=== PATIENT | male | born 1980 | race Caucasian/White ===

== ENCOUNTER 2016-10-22 10:12 | Emergency (ER) | payer MEDICAID ==
[2016-10-22 10:38] VITALS: BP 131/83
[2016-10-22] MEDS ORDERED: Sodium Chloride 0.9% 1,000 ML IV ONE (10:55)
[2016-10-22] MEDS ORDERED: Metoclopramide 10 MG/2 ML SDV IVPUSH ONE (10:56)
[2016-10-22] MEDS ORDERED: Dicyclomine 10 MG Cap PO ONE (10:57)
[2016-10-22] MEDS ORDERED: diphenhydrAMINE 50 MG/ML SDV IVPUSH ONE (10:57)
[2016-10-22] MEDS ORDERED: Dextrose 5%-Lactated Ringers 1,000 ML IV SCH (11:00)
--- NOTE | 2016-10-24 11:30 | ER ---
DATE SEEN: 10/22/2016 TIME SEEN: The patient was seen at 1030 hours. HISTORY OF PRESENT ILLNESS: This 36-year-old man, who smokes a half- pack of cigarettes per day, has had 2 kidney stones in the last 20 months, is status post previous lithotripsy in 2010, comes in with history of onset of flu like symptoms with abdominal pain starting at 0300 hours. He has had bloating and gas and notes he has "passed the foulest gas ever." He works at a [employer]. 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 He does not usually eat the pizza there, but on occasion, he eats when he gets hungry. The patient does not have associated vomiting. His stools are "neon" in character. He has no recent antibiotics used. The abdominal pain is described as cramping and 8/10 in intensity he has 15- 20 bouts of diarrhea with trace blood in the stool. MEDICATIONS: 1. Clonazepam for anxiety. 2. Gabapentin 600 mg b.i.d. for chronic pain. ALLERGIES: None. REVIEW OF SYSTEMS: Negative except for noted above. PHYSICAL EXAMINATION: VITAL SIGNS: Blood pressure 131/83, respirations 16, oxygen saturation 98%, temperature is 36.3, and pulse is 87. The patient is 83.915 kg. GENERAL: The patient has marked pain, is unshaven, slightly overweight, well-muscled fellow, well-nourished fellow. HEENT: TMs negative. Pharynx is without erythema. NECK: No cervical adenopathy, thyromegaly, or masses in the neck. Smoking odor noted on his breath. LUNGS: Clear to auscultation without rales, rhonchi, or wheezes. HEART: S1, S2. No murmur. No irregular rate or rhythm. ABDOMEN: Soft with [id number]-jssjnclg guarding. No rebound. Bowel sounds are slightly increased. No CVA percussion tenderness. : Genitalia negative. No inguinal hernia. No upper abdominal masses or incisions. LOWER EXTREMITIES: Without pedal edema. LABORATORY FINDINGS: No lab work was performed. The patient was treated with a liter of D5 lactated Ringer's and a liter of normal saline. He had Benadryl IV plus metoclopramide 10 mg IV and his pain went down to almost 0, but if he moves around the cramping recurs. He feels much better. He says he feels hungry. He still has generalized abdominal discomfort when he gets up and moves around. The patient had a prescription for Zofran 10 tablets 1 q.4 hours p.r.n. nausea and vomiting and also Bentyl 10 mg 1 to 2 tabs 4 times a day as needed for cramping. Follow up with doctor in 24 hours if markedly worse, otherwise in 3 days. Off work and return to work on October 25. DIAGNOSES: 1. Gastrointestinal food poisoning, generalized induced cramping with extensive diarrhea with dehydration. 2. Smoking. 3. History of renal stones. PLAN: The patient will need to follow his renal status because potentially he could have renal stone development out of this dehydration episode. No CAT scan was performed as he has a nonsurgical abdomen, there was no evidence for peritonitis. The blood in the stool was somewhat of concern, consequently a stool specimen will be obtained. He was not able to give us a specimen in the hospital, but he is going to bring the specimen from home to rule out Salmonella, Shigella. /[id number] ALETHEA/MARITZA NOLASCO
== END 2016-10-22 14:30 | disposition home or self-care (01) ==
LOC: FB.ED 10:12
DX: T62.8X1A Toxic effect of other specified noxious substances eaten as food, accidental (unintentional), initial encounter (principal); E86.0 Dehydration; R19.7 Diarrhea, unspecified; F17.210 Nicotine dependence, cigarettes, uncomplicated
CPT/HCPCS: 87015; 87045; 87046; 87899; 96361; 96374; 96375; 99284; A9270; J1200; J2765; J7040; J7042

== ENCOUNTER 2017-06-12 16:45 | Emergency (ER) | payer MEDICAID ==
[2017-06-12] MEDS ORDERED: Lidocaine 1% 20 ML MDV INFILT ONE (16:46)
[2017-06-12] MEDS ORDERED: Amoxicillin/Clavulanate K 250-125 MG Tab PO ONE (17:24)
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
[2017-06-12 17:47] VITALS: BP 145/65
== END 2017-06-12 17:40 | disposition home or self-care (01) ==
LOC: FB.ED 16:45
DX: S71.151A Open bite, right thigh, initial encounter (principal); W54.0XXA Bitten by dog, initial encounter; Z87.442 Personal history of urinary calculi; Z98.890 Other specified postprocedural states; F17.210 Nicotine dependence, cigarettes, uncomplicated
CPT/HCPCS: 12002; 99283; A9270

== ENCOUNTER 2017-06-26 19:18 | Emergency (ER) | payer MEDICAID ==
[2017-06-26] MEDS ORDERED: HYDROmorphone 2 MG/ML SDV IM STA (19:56)
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
[2017-06-26] MEDS ORDERED: cefTRIAXone 1,000 MG VIAL IM ONE (20:57)
[2017-06-26 22:01] VITALS: BP 149/93
--- NOTE | 2017-06-27 10:58 | US ---
INDICATION: Possible abscess left forearm. NONVASCULAR LEFT UPPER EXTREMITY ULTRASOUND: Multiple ultrasonic images were obtained 06/27/2017 and revealed a 43 x 26 x 27-mm heterogeneous, mostly hypoechoic mass, irregular in shape, with minimal interior blood flow in areas of solid tissue. The area is compatible with an abscess. Drainage recommended for diagnosis. This is in the area of the lower portion of the biceps. Edematous changes are noted in surrounding musculature. IMPRESSION: Findings are most compatible with an abscess in the left arm. MTDD
== END 2017-06-26 21:25 | disposition home or self-care (01) ==
LOC: FB.ED 19:18
DX: L03.114 Cellulitis of left upper limb (principal); F17.210 Nicotine dependence, cigarettes, uncomplicated
CPT/HCPCS: 10061; 36415; 76881; 80048; 83605; 85025; 87040; 87070; 87075; 87205; 96372; 99284; J0696; J1170; 10060

== ENCOUNTER 2017-06-29 16:22 | Emergency (ER) | payer MEDICAID ==
[2017-06-29 16:43] VITALS: BP 141/56
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
== END 2017-06-29 17:57 | disposition home or self-care (01) ==
LOC: FB.ED 16:22
DX: L02.414 Cutaneous abscess of left upper limb (principal)
CPT/HCPCS: 36415; 85025; 99283

== ENCOUNTER 2017-09-25 15:47 | Emergency (ER) | payer MEDICAID ==
[2017-09-25] MEDS ORDERED: Naloxone 0.4 MG/ML SDV IVPUSH ONE ×2 (15:48→16:56)
[2017-09-25] MEDS ORDERED: Pantoprazole 40 MG Vial IVPUSH ONE (16:00)
[2017-09-25] MEDS ORDERED: Ondansetron 4 MG/2 ML SDV IVPUSH ONE (16:00)
[2017-09-25] MEDS ORDERED: Sodium Chloride 0.9% 1,000 ML IV ONE (16:00)
[2017-09-25] MEDS ORDERED: Thiamine 100 MG in Sodium Chloride 0.9% 100 ML IV ONE (16:02)
[2017-09-25] MEDS ORDERED: Albuterol/Ipratropium 3.0-0.5 MG/3 ML Neb Soln NEB ONE (16:09)
[2017-09-25] MEDS ORDERED: Albuterol/Ipratropium 3.0-0.5 MG/3 ML Neb Soln ONE (16:12)
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
[2017-09-25] MEDS ORDERED: Sodium Chloride 0.9% 1,000 ML IV SCH ×2 (16:58→17:04)
[2017-09-25] MEDS ORDERED: cefTRIAXone 500 MG Vial IVPUSH ONE (17:45)
[2017-09-25] MEDS ORDERED: cefTRIAXone 500 MG Vial ONE (17:46)
[2017-09-25] MEDS ORDERED: Flumazenil 0.1 MG/ML 5 ML MDV IVPUSH STA (17:47)
[2017-09-25] MEDS ORDERED: Flumazenil 0.1 MG/ML 5 ML MDV IVPUSH ONE (17:48)
[2017-09-25] MEDS ORDERED: Flumazenil 0.1 MG/ML 5 ML MDV ONE (17:51)
[2017-09-25] MEDS ORDERED: cefTRIAXone 500 MG Vial IM ONE (18:48)
--- NOTE | 2017-09-26 11:07 | CR ---
INDICATION: Cough, post intubation. CHEST: An AP view of the chest was obtained apparently supine and revealed an endotracheal tube in adequate position several centimeters above the aortic arch in the area of the trachea. Nasogastric tube is also noted in place. Its tip is doubled back into the gastric fundus area. Pleuroparenchymal changes are suggested at the right lung base, which may be on the basis of pneumonia and pleuritis, possibly some atelectasis. Pulmonary vasculature appears somewhat congested, raising question of additional pulmonary vascular congestion, possibly CHF. The heart did not appear grossly enlarged, however. The aorta is tortuous with calcification. Overlying EKG leads are noted. IMPRESSION: 1. Endotracheal tube in adequate position. 2. Nasogastric tube tip doubled upon itself and is directed into the gastric fundus towards the left hemidiaphragm. 3. Pleuroparenchymal changes at the right lung base, suggesting pneumonia and pleuritis, possibly atelectasis. 4. Possible CHF and interstitial lung edema. 5. Probable mild ASHD. Question degree of cardiomegaly. MTDD
== END 2017-09-25 18:05 | disposition critical access hospital (66) ==
LOC: FB.ED 15:47
DX: R06.03 Acute respiratory distress (principal); R11.2 Nausea with vomiting, unspecified; F17.210 Nicotine dependence, cigarettes, uncomplicated; Z79.899 Other long term (current) drug therapy; Z87.442 Personal history of urinary calculi; R06.02 Shortness of breath
CPT/HCPCS: 51702; 70450; 71045; 80048; 80305; 82803; 83605; 84484; 85025; 85610; 87040; 93005; 94640; 96361; 96365; 96374; 96375; 99291; 99292; C9113; G0480; J0696; J2310; J2405; J3411; J7030; J7040; J7620; 36415; J3490

== ENCOUNTER 2017-11-15 18:03 | Emergency (ER) | payer OTHER ==
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
[2017-11-15 18:27] VITALS: BP 139/105
[2017-11-15] MEDS ORDERED: Ketorolac 60 MG/2 ML SDV IM ONE (18:49)
[2017-11-15] MEDS: Sodium Chloride 0.9% 10 ML Syringe FLUSH PRN ×2 (18:55→19:02)
[2017-11-15] MEDS ORDERED: Ketorolac 30 MG/ML SDV IVPUSH ONE (18:55)
[2017-11-15] MEDS ORDERED: hydrOXYzine HCl 50 MG/ML SDV IM ONE (19:16)
[2017-11-15] MEDS ORDERED: Tamsulosin 0.4 MG Cap.ER PO ONE (19:17)
--- NOTE | 2017-11-16 08:00 | ER ---
DATE SEEN: 11/15/2017 ADDENDUM: This patient was seen by Dr. Leo at the turn of the shift. He came in complaining of right flank pain. He has a history of kidney stones. Upon exam, he was crouched in pain. His blood pressure was 139/105, pulse 129, temperature 98.7. Abdomen was soft, but there is tenderness in the right flank and costovertebral angle area. DIAGNOSTIC DATA: Labs: UA showed positive marijuana and rbc's more than 100. CT abdomen and pelvis for kidney stone, however, showed tiny kidney stones, nonobstructive in the right kidney. IMPRESSION: 1. Back pain. 2. History of anxiety. PLAN: I did not give any treatment. I reassured him. I offered him Vistaril and Flomax, which he said he is already taking. He had already gotten ketorolac with no relief. I advised him to see Dr. Silverio tomorrow. Time discharged was 1915 hours. /[id number] TOSHA/MARITZA
== END 2017-11-15 19:23 | disposition home or self-care (01) ==
LOC: FB.ED 18:03
DX: M54.9 Dorsalgia, unspecified (principal); G89.29 Other chronic pain; R10.9 Unspecified abdominal pain; F17.210 Nicotine dependence, cigarettes, uncomplicated; Z79.899 Other long term (current) drug therapy
CPT/HCPCS: 74176; 80305; 81001; 96372; 99284; J1885; J7050

== ENCOUNTER 2018-01-19 18:56 | Emergency (ER) | payer OTHER ==
[2018-01-19] MEDS ORDERED: Ketorolac 60 MG/2 ML SDV IM ONE (19:15)
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
[2018-01-19 20:19] VITALS: BP 131/91
== END 2018-01-19 20:10 | disposition home or self-care (01) ==
LOC: FB.ED 18:56
DX: M62.830 Muscle spasm of back (principal); Z79.899 Other long term (current) drug therapy
CPT/HCPCS: 80305; 81001; 96372; 99283; J1885; J2360

== ENCOUNTER 2018-01-20 16:01 | Emergency (ER) | payer OTHER ==
[2018-01-20] MEDS ORDERED: traMADol 50 MG Tab PO ONE ×2 (16:12→17:04)
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
[2018-01-20 18:01] VITALS: BP 161/106
== END 2018-01-20 17:15 | disposition home or self-care (01) ==
LOC: FB.ED 16:01
DX: M54.6 Pain in thoracic spine (principal); Z79.899 Other long term (current) drug therapy; Z87.442 Personal history of urinary calculi; Z76.5 Malingerer [conscious simulation]
CPT/HCPCS: 99282; A9270

== ENCOUNTER 2019-01-14 11:08 | Emergency (ER) | payer MEDICAID ==
[2019-01-14 11:28] VITALS: BP 157/96
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
== END 2019-01-14 12:05 | disposition home or self-care (01) ==
LOC: FB.ED 11:08
DX: K03.81 Cracked tooth (principal); K04.7 Periapical abscess without sinus; K21.9 Gastro-esophageal reflux disease without esophagitis; F17.210 Nicotine dependence, cigarettes, uncomplicated; F41.9 Anxiety disorder, unspecified; F32.9 Major depressive disorder, single episode, unspecified; Z88.8 Allergy status to other drugs, medicaments and biological substances; Z79.899 Other long term (current) drug therapy
CPT/HCPCS: 99282

== ENCOUNTER 2019-03-21 11:40 | Emergency (ER) | payer MEDICAID ==
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
[2019-03-21 12:41] VITALS: BP 139/88; PULSE 80
== END 2019-03-21 12:45 | disposition home or self-care (01) ==
LOC: FB.ED 11:40
DX: K04.7 Periapical abscess without sinus (principal); Z88.8 Allergy status to other drugs, medicaments and biological substances
CPT/HCPCS: 99282

== ENCOUNTER 2019-03-24 19:59 | Emergency (ER) | payer MEDICAID ==
[2019-03-25 18:25] VITALS: BP 148/96; PULSE 89
--- NOTE | 2019-03-26 00:51 | ER ---
DATE SEEN: 03/24/2019 CHIEF COMPLAINT: Pain. HISTORY OF PRESENT ILLNESS: A 38-year-old male with a history of frequent visits for tooth pain, dental caries, and abscess, and his pain today is moderate to severe. He was seen on Sunday with the same pain and is currently on antibiotics. He states the pain is shooting. PAST MEDICAL HISTORY: He has a history of depression, anxiety, and also narcotic addiction. ALLERGIES: Cymbalta. PHYSICAL EXAMINATION: VITAL SIGNS: Blood pressure is within normal limits. He is afebrile. HEENT: Oral exam reveals dental caries, several areas of cavities noted in the teeth, especially the left lower side. MENTAL STATUS: Normal affect. IMPRESSION: Dental pain. PLAN: Continue to finish antibiotics. Ibuprofen or Tylenol for pain. I offered no narcotics. I recommended a dentist appointment tomorrow. There is a place in [place], a dental access, where he can see a dentist on a first-come first-serve basis. The patient left after I explained this without waiting for discharge instructions, apparently upset. /[id number] TOSHA/MARITZA
== END 2019-03-24 20:40 | disposition home or self-care (01) ==
LOC: FB.ED 19:59
DX: K08.89 Other specified disorders of teeth and supporting structures (principal)
CPT/HCPCS: 99282

== ENCOUNTER 2019-08-21 11:53 | Emergency (ER) | payer MEDICAID ==
[2019-08-21] MEDS ORDERED: Lidocaine 2% Viscous Solution 15 ML Cup PO ONE (12:19)
[2019-08-21 12:35] VITALS: BP 147/88; PULSE 84
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
== END 2019-08-21 12:56 | disposition home or self-care (01) ==
LOC: FB.ED 11:53
DX: M79.81 Nontraumatic hematoma of soft tissue (principal); K02.9 Dental caries, unspecified
CPT/HCPCS: 99282; A9270

== ENCOUNTER 2019-10-07 11:09 | Emergency (ER) | payer MEDICAID ==
[2019-10-07] MEDS ORDERED: predniSONE 20 MG Tab PO ONE (12:03)
[2019-10-07] MEDS ORDERED: Ketorolac 60 MG/2 ML SDV IM ONE (12:03)
--- NOTE | 2019-10-07 13:42 | CT ---
INDICATION: Right-sided hip pain down back of thigh. CT PELVIS WITHOUT CONTRAST: Spiral 1.25 mm axial sections were obtained through the pelvis with sagittal and coronal reconstructions. Total exam DLP was 1443.12 mGy-cm. Moderate bridging hypertrophic changes are noted at the superior aspect of the right sacroiliac joint, which may be on the basis of posttraumatic osteoarthritis but should be correlated clinically, since no evidence of a definite fracture site is seen. There is a sclerotic density adjacent in the iliac bone which may represent a benign bone island. The left sacroiliac joint appeared normal. Pelvic bones appear to be normal in density. The hip joints appear to be symmetrical and normal. A definite acute fracture or dislocation was not identified. Thickening of the wall of the urinary bladder is noted. The prostate is not enlarged but is fairly heavily calcified. No findings to suggest bowel obstruction was seen. No evidence of an inguinal hernia was identified. No definite soft tissue mass was seen, no free fluid collection was identified. No obvious herniated disk or bulging disk was identified in the visualized lumbosacral spine. There is a tiny calcific density at the exiting nerve root at L5-S1 on the right, this is of questionable significance. IMPRESSION: 1. Asymmetrical hypertrophic degenerative changes along the superior portion of the right sacroiliac joint with what appears to be an adjacent benign bone island - area of sclerosis in the iliac bone. 2. Normal appearing appendix visualized on coronal images 58 to 61. 3. Thickening of the urinary bladder wall. 4. Normal size prostate with fairly heavy calcifications within it. MTDD
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
[2019-10-07] MEDS ORDERED: Morphine 2 MG/ML SYRINGE IM ONE (14:36)
--- NOTE | 2019-10-07 14:41 | CT ---
INDICATION: Hematuria. CT ABDOMEN AND PELVIS WITHOUT CONTRAST: Spiral 2.5 mm axial sections were obtained through the abdomen and pelvis without additional contrast with sagittal and coronal reconstructions 10/07/2019 - and compared with 03/17/15 and 11/15/17. Total exam DLP was 1385.35 mGy-cm. Low lung kaufman and pleural spaces included on the study appeared normal. The heart is normal in size. No pericardial effusion was seen. 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 No specific liver abnormality was identified. No gallstones were demonstrated. Adrenal glands appeared normal. The pancreas was unremarkable, with common bile duct normal in caliber in the head of the pancreas. In the lower pole of the left kidney, there is now noted a tiny calcification, most likely in a calyx, which is nonobstructive. On the right, one tiny calcification is noted in the upper pole medial area compatible with a caliceal calcification, another slightly larger calcification seen on the previous examination in the upper pole more posteriorly and laterally is no longer visible and may have been passed. There is also a very tiny area of calcification, most likely in a calyx in the lower pole anteriorly in the right kidney, which was not definitely present on the previous examination. No evidence, however, of obstructive uropathy was seen at either kidney. The pelvocaliceal systems and ureters appeared normal in caliber. Urinary bladder was unremarkable. Extensive calcifications noted in the prostate as previously. The prostate is not enlarged. Slight thickening of the urinary bladder wall is noted. No evidence of ventral hernia was identified. No inguinal hernia was seen. No evidence of bowel obstruction or free air was seen. IMPRESSION: 1. No evidence of obstructive uropathy. 2. Renal calcinosis - minimal. 3. Post histoplasmosis changes spleen. 4. Heavily calcified prostate, which is not enlarged. 5. Slightly thickened wall of the urinary bladder, which could be on the basis of cystitis - correlate clinically. 6. Minimal dextroconcave scoliosis suggested lower lumbar spine. Findings called to Dr. Whitmore at 14:17 hours. [facility]
[2019-10-07 15:46] VITALS: BP 132/87; PULSE 87
== END 2019-10-07 14:45 | disposition home or self-care (01) ==
LOC: FB.ED 11:09
DX: M76.9 Unspecified enthesopathy, lower limb, excluding foot (principal); N30.01 Acute cystitis with hematuria; N20.0 Calculus of kidney; M62.830 Muscle spasm of back; N40.0 Benign prostatic hyperplasia without lower urinary tract symptoms; K21.9 Gastro-esophageal reflux disease without esophagitis; F41.0 Panic disorder [episodic paroxysmal anxiety]; F32.9 Major depressive disorder, single episode, unspecified; E66.9 Obesity, unspecified; Z68.33 Body mass index [BMI] 33.0-33.9, adult; F17.210 Nicotine dependence, cigarettes, uncomplicated; Z88.8 Allergy status to other drugs, medicaments and biological substances; Z79.899 Other long term (current) drug therapy
CPT/HCPCS: 72192; 74176; 81001; 96372; 99284; A9270; J1885; J2270

== ENCOUNTER 2020-01-18 13:06 | Emergency (ER) | payer MEDICAID ==
[2020-01-18] MEDS ORDERED: Ketorolac 60 MG/2 ML SDV IM ONE (13:42)
[2020-01-18] MEDS ORDERED: cefTRIAXone 1 GM Vial IM ONE (13:42)
[2020-01-18] MEDS ORDERED: Sulfamethoxazole/Trimethoprim 400-80 MG Tab PO STA (13:42)
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
[2020-01-18] MEDS ORDERED: Sulfamethoxazole/Trimethoprim 800-160 MG Tab PO ONE (14:18)
[2020-01-18 14:44] VITALS: BP 124/81; PULSE 74
== END 2020-01-18 14:19 | disposition home or self-care (01) ==
LOC: FB.ED 13:06
DX: L03.031 Cellulitis of right toe (principal); L60.0 Ingrowing nail; K21.9 Gastro-esophageal reflux disease without esophagitis; F31.9 Bipolar disorder, unspecified; F41.0 Panic disorder [episodic paroxysmal anxiety]; E66.9 Obesity, unspecified; F17.210 Nicotine dependence, cigarettes, uncomplicated; Z68.34 Body mass index [BMI] 34.0-34.9, adult; Z88.8 Allergy status to other drugs, medicaments and biological substances; Z79.899 Other long term (current) drug therapy
CPT/HCPCS: 96372; 99282; A9270; J0696; J1885

== ENCOUNTER 2020-02-13 10:37 | Emergency (ER) | payer MEDICAID ==
[2020-02-13] MEDS ORDERED: cefTRIAXone 1 GM Vial IM ONE (11:39)
[2020-02-13] MEDS ORDERED: Ibuprofen 600 MG Tab PO ONE (11:42)
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
[2020-02-13 12:45] VITALS: BP 158/89; PULSE 98
== END 2020-02-13 12:10 | disposition home or self-care (01) ==
LOC: FB.ED 10:37
DX: L03.032 Cellulitis of left toe (principal); E66.9 Obesity, unspecified; Z68.34 Body mass index [BMI] 34.0-34.9, adult; F17.210 Nicotine dependence, cigarettes, uncomplicated; Z88.8 Allergy status to other drugs, medicaments and biological substances
CPT/HCPCS: 64450; 87070; 87077; 87186; 87205; 96372; 99283; A9270; J0696

== ENCOUNTER 2020-05-08 10:49 | Emergency (ER) | payer MEDICAID ==
[2020-05-08] MEDS: Sodium Chloride 0.9% 1,000 ML IV ONE ×2 (12:24→20:52)
[2020-05-08] MEDS: cefTRIAXone 1 GM Vial IVPUSH ONE ×2 (12:24→20:52)
[2020-05-08 12:26] VITALS: PULSE 97
[2020-05-08] MEDS ORDERED: cefTRIAXone 1 GM Vial IM ONE (13:25)
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
[2020-05-08] MEDS ORDERED: Ondansetron 4 MG Tab.DIS PO ONE (13:29)
[2020-05-08] MEDS ORDERED: HYDROmorphone 2 MG/ML SDV IM ONE (13:29)
[2020-05-08 21:08] VITALS: BP 140/87
== END 2020-05-08 14:48 ==
LOC: FB.ED 10:49
DX: L03.116 Cellulitis of left lower limb (principal); E66.9 Obesity, unspecified; F41.0 Panic disorder [episodic paroxysmal anxiety]; F31.9 Bipolar disorder, unspecified; Z88.8 Allergy status to other drugs, medicaments and biological substances; Z79.899 Other long term (current) drug therapy; Z68.35 Body mass index [BMI] 35.0-35.9, adult
CPT/HCPCS: 36415; 73502; 80053; 81001; 83605; 85025; 86140; 87040; 96372; 99284; A9270; J0696; J1170; 93005; 99285; J7030